=== PATIENT | female | born 1970 | race Caucasian/White ===

== ENCOUNTER 2019-05-19 16:00 | Emergency (ER) | payer OTHER, MEDICAID, SELFPAY ==
--- NOTE | ~2019-05-19 | XR_ITS ---
EXAMINATION: XR hand RT min 3V EXAM DATE: 05/19/2019 16:26 INDICATION: Initial encounter following injury, with pain of the right hand, fifth finger. TECHNIQUE: Right hand frontal, lateral and oblique projections obtained and reviewed. There is no prior study for comparison. FINDINGS: There are no acute right hand fractures or dislocations identified. There is no subcutaneo us gas. The soft tissue is unremarkable. There are no radiopaque foreign bodies. 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 IMPRESSION: No acute osseous findings. Reviewed, dictated and finalized at location B. ROPOLOGY PROFESSOR IMPRESSION: No acute osseous findings.
[2019-05-19 16:12] VITALS: BP 110/54; PULSE 93; RESP 18; TEMP 36.6; O2SAT 99
--- NOTE | 2019-05-19 16:51 | ED.UPPEXIN ---
HPI - Extremity Injury (Upper) General Chief Complaint: Extremity Injury, Upper Stated Complaint: Right Finger Pain Time Seen by Provider: 05/19/19 16:47 Source: patient and RN notes reviewed Mode of arrival: ambulatory Limitations: no limitations History of Present Illness HPI narrative: Patient presents today complaining of an injury to her right fifth finger. Injury occurred at 1210 this afternoon when her 80 pound dog's leash became wrapped around her hand and pulled tight. Denies numbness or tingling in the finger or hand. Denies pain down into the hand, but became concerned when this bruising spread down into the hand. Currently rates her pain 09/29. Patient previously took [place] at 11 AM for chronic back pain, but has tried no other intervention for her symptoms prior to arrival. She did purchase an [id number] finger splint at the pharmacy prior to arrival. MD complaint: injury to: right and finger Related Data Home Medications Medication Instructions Recorded Confirmed allopurinol 300 mg PO DAILY 05/19/19 05/19/19 alprazolam [Xanax] 0.5 mg PO DAILY 05/19/19 05/19/19 aspirin [Adult Low Dose Aspirin] 81 mg PO DAILY 05/19/19 05/19/19 betamethasone dipropionate 1 applic TOPICAL DAILY 05/19/19 05/19/19 biotin 5,000 mcg PO BID 05/19/19 05/19/19 cholecalciferol (vitamin D3) 50 mcg PO DAILY 05/19/19 05/19/19 [Vitamin D3] clotrimazole 1 applic TOPICAL BID 05/19/19 05/19/19 cyclobenzaprine 10 mg PO HS 05/19/19 05/19/19 docusate sodium 50 mg PO DAILY 05/19/19 05/19/19 famotidine [Pepcid] 20 mg PO DAILY 05/19/19 05/19/19 hydrocodone-acetaminophen 1 tablet PO Q4H 05/19/19 05/19/19 levothyroxine 100 mcg PO DAILY 05/19/19 05/19/19 liothyronine 50 mcg PO DAILY 05/19/19 05/19/19 loratadine [Claritin] 10 mg PO DAILY 05/19/19 05/19/19 lubiprostone [Amitiza] 8 mcg PO BID 05/19/19 05/19/19 metoprolol tartrate 25 mg PO BID 05/19/19 05/19/19 thiamine HCl (vitamin B1) 250 mg PO DAILY 05/19/19 05/19/19 venlafaxine 50 mg PO DAILY 05/19/19 05/19/19 Allergies Allergy/AdvReac Type Severity Reaction Status Date / Time Cephalosporins Allergy Unknown Verified 01/01/19 13:55 1 INDOCIN 2 KEFLEX Allergy Unknown Uncoded 09/13/02 15:08 INDOMETHACIN (Generic Allergy Unknown Y Uncoded 06/14/10 07:57 Allergy) NKFAQ Allergy Unknown Uncoded 09/13/02 15:08 NONSTEROIDAL Allergy Unknown Uncoded 07/28/15 14:33 Review of Systems Review of Systems: Narrative: CONSTITUTIONAL: Denies body aches, fever, chills, or sweats. EYES: Denies visual changes, redness, or discharge. ENT: Denies rhinorrhea, congestion, sore throat, or otalgia. CARDIOVASCULAR: Denies chest pain, palpitations, or edema. RESPIRATORY: Denies cough or dyspnea. GASTROINTESTINAL: Denies abdominal pain, nausea, vomiting, or diarrhea. GENITOURINARY: Denies dysuria or hematuria. SKIN: Denies rash, itching, or wounds. MUSCULOSKELETAL: Denies back pain, or myalgia.+ Right fifth finger injury NEUROLOGIC: Denies headache, numbness, tingling, or weakness. PSYCH: Denies depression or anxiety. [facility] Past Medical History Medical History (Updated 05/19/19 @ 16:57 by Kelly Garcia, [facility], ) Anxiety Chronic back pain Gout Hypothyroidism Social History Social History Gender identity (if verbalized by the patient): Female Comments At time of signature, I have reviewed and agree with nursing past medical, surgical, social and family history unless otherwise noted. Please see nursing chart for further information. There is no relevant family history pertinent to the presenting complaint Exam Narrative: Exam Narrative: GENERAL: Well-appearing, over-nourished, and in no acute distress. HEAD: Normocephalic, atraumatic. EYES: EOMI. No redness or drainage. Conjunctivae normal. ENT: Mucous membranes pink and moist. NECK: Normal AROM. CHEST: No respiratory distress. EXTREMITIES: Right hand: Ecchymosis from the right fifth PIP to the mid metacarpal with mild edema of the
== END 2019-05-19 17:00 | disposition home or self-care (01) ==
PROVIDERS: Emergency Provider Nurse Practitioner; PCP Family Medicine Sports Medicine
DX: S60.051A Contusion of right little finger without damage to nail, initial encounter (principal); X58.XXXA Exposure to other specified factors, initial encounter; Z87.891 Personal history of nicotine dependence; Z98.84 Bariatric surgery status
CPT/HCPCS: 73130; 99213; G0463